=== PATIENT | male | born 1985 | race Caucasian/White ===

== ENCOUNTER 2021-03-31 10:57 | Emergency (ER) | payer BC ==
[~2021-03-31] VITALS: Ht 167.6 cm; Wt 111.1 kg
[2021-03-31] MEDS ORDERED: SODIUM CHLORIDE 0.9% 1000ML 1,000 ML IV STA (11:08)
[2021-03-31] MEDS ORDERED: LORAZEPAM INJ 2 MG/ML VIAL IV ONE (11:15)
[2021-03-31 11:55] LABS: BASOPHILS % 0.7 % (0.0-1.0); EOSINOPHILS # (AUTO) 0.1 (0.0-0.4); EOSINOPHILS % 1.4 % (0.0-6.0); HEMATOCRIT 42.8 % (38.2-49.6); HEMOGLOBIN 14.5 g/dL (14.0-18.0); LYMPHOCYTES # (AUTO) 1.5 (1.0-3.2); LYMPHOCYTES % 26.9 % (18.0-39.1); MEAN CORPUSCULAR HEMOGLOBIN 30.6 pg (28-32); MEAN CORPUSCULAR HGB CONC 33.9 g/dL (31-35); MEAN CORPUSCULAR VOLUME 90.3 fL (81-99); MONOCYTES # (AUTO) 0.4 (0.2-0.8); MONOCYTES % 7.5 % (4.4-11.3); NEUTROPHILS # (AUTO) 3.6 (2.1-6.9); PLATELET COUNT 295 x10e3/uL (140-360); RED BLOOD COUNT 4.74 x10e6/uL (4.3-5.7); RED CELL DISTRIBUTION WIDTH 12.4 % (11.7-14.4)
[2021-03-31] MEDS ORDERED: LORAZEPAM INJ 2 MG/ML VIAL ONE (12:11)
[2021-03-31 12:16] LABS: ALANINE AMINOTRANSFERASE 29 IU/L (0-55); ALBUMIN 4.3 g/dL (3.5-5.0); ALBUMIN/GLOBULIN RATIO 1.2 (0.8-2.0); ALKALINE PHOSPHATASE 73 IU/L (40-150); ANION GAP 16.3 mmol/L (8-16); BLOOD UREA NITROGEN 16 mg/dL (7-26); BUN/CREATININE RATIO 17 (6-25); CALCIUM 9.6 mg/dL (8.4-10.2); CARBON DIOXIDE 26 mmol/L (22-29); CHLORIDE 105 mmol/L (98-107); CREATINE KINASE 94 IU/L (30-200); CREATININE, SERUM 0.93 mg/dL (0.72-1.25); EST GLOMERULAR FILTRATION RATE > 60 ML/MIN (60-); GLUCOSE 91 mg/dL (74-118); POTASSIUM 4.3 mmol/L (3.5-5.1); SODIUM 143 mmol/L (136-145)
[2021-03-31 12:49] LABS: AMPHETAMINES SCREEN,URINE POSITIVE (NEGATIVE); BENZODIAZEPINES SCREEN,URINE NEGATIVE (NEGATIVE); CLARITY,URINE SL CLOUDY (CLEAR); COLOR,URINE YELLOW (YELLOW); PHENCYCLIDINE SCREEN,URINE NEGATIVE (NEGATIVE); URINE UROBILINOGEN 0.2 mg/dL (0.2 - 1)
[2021-03-31 12:50] LABS: KETONES,URINE TRACE (NEGATIVE); LEUKOCYTE ESTERASE ,URINE NEGATIVE (NEGATIVE); NITRITE,URINE NEGATIVE (NEGATIVE); PROTEIN,URINE DIPSTICK NEGATIVE (NEGATIVE)
[2021-03-31 13:02] LABS: AMORPHOUS SEDIMENT,URINE MANY (FEW); BACTERIA,URINE MANY /HPF; EPITHELIAL CELLS,URINE FEW /LPF; RBC,URINE 0-5 /HPF (0-5); WBC,URINE (MAN) 0-5 /HPF (0-5)
[2021-03-31 13:03] LABS: OTHER CRYSTALS,URINE PRESENT
[2021-03-31 15:00] LABS: FREE THYROXINE INDEX 1.9196 (1.4-3.8); THYROID STIMULATING HORMONE 1.356 uIU/mL (0.350-4.940)
[2021-03-31 15:22] LABS: CREATINE KINASE 75 IU/L (30-200)
[2021-03-31] MEDS ORDERED: CLINDAMYCIN HC150 MG PO (16:01)
== END 2021-03-31 16:56 | disposition home or self-care (01) ==
LOC: ER 11:01
DX: R07.89 Other chest pain (principal); R06.02 Shortness of breath; R42 Dizziness and giddiness; I10 Essential (primary) hypertension; E11.9 Type 2 diabetes mellitus without complications; R94.31 Abnormal electrocardiogram [ECG] [EKG]
CPT/HCPCS: 36415; 71045; 80053; 80307; 81001; 82550; 82553; 84436; 84443; 84479; 84484; 85025; 99284; J2060; J7030